=== PATIENT | male | born 1945 | race Caucasian/White ===

== ENCOUNTER → 2016-08-30 | Outpatient (CLI) | payer MEDICARE ==
[~2016-08-30] MED LIST: LEVO75TA10; LISI10TA7
--- NOTE | 2016-08-30 16:31 | DI ---
Indication: ITS.REASON: C61 PROSTATE CA PROCEDURE: NM BONE SCAN, WHOLE BODY: Encounter: Subsequent Comparison: Chest x-ray dated July 13, 2016 Technique: 26.4 mCi of Tc-99m MDP was administered intravenously. Anterior and posterior planar whole-body and spot images were obtained. FINDINGS: The scan demonstrates the expected normal biodistribution for the radiotracer. There is probable degenerative uptake seen in the wrists, knees and feet. Nonspecific uptake in the mid sternum, more likely to be degenerative or traumatic than an isolated metastasis. There is no abnormal radiotracer uptake to suggest bony metastasis. IMPRESSION: No definite evidence of metastatic disease to the skeleton. .
== END ==
LOC: IMA 12:32
PROVIDERS: ATTEND Student in an Organized Health Care Education/Training Program
DX: C61 Malignant neoplasm of prostate (principal)
CPT/HCPCS: 78306; A9503